=== PATIENT | female | born 1945 | race Caucasian/White ===

== ENCOUNTER 2016-11-02 02:11 | Observation (INO) | payer MEDICARE ==
[2016-11-02 02:48] VITALS: BMI 23.3
[2016-11-02] MEDS ORDERED: Morphine 2 mg/ml ISec IVP STA (03:03)
[2016-11-02] MEDS: Sodium Chloride 0.9% 1,000 ML IV SCH ×3 (03:33→22:08)
--- NOTE | 2016-11-02 03:51 | ED PDOC ---
Arrival/HPI - General Chief Complaint: Abdominal Pain Time Seen by Provider: 11/02/16 02:50 Historian: Patient - History of Present Illness Narrative History of Present Illness (Text): 11/02/16 03:43 70 year old female whose past medical history includes diverticulosis, hypertension, H. pylori, and appendectomy presents to the Emergency department complaining of epigastric pain. Patient describes the pain as "achey". She also notes chills and multiple episodes of vomiting and diarrhea. Patient states she drank pedialyte but vomited it up. She denies fever or any urinary complaints. PMD: Dr. Oviedo GI: Dr. Gomez Time/Duration: < week Symptom Onset: Gradual Symptom Course: Unchanged Activities at Onset: Rest Past Medical History - Provider Review Nursing Documentation Reviewed: Yes - Tetanus Immunization Tetanus Immunization: Unknown - Cardiac Hx Cardiac Disorders: Yes Hx Angina: No Hx Atrial Fibrillation: No Hx Cardiac Arrhythmia: No Hx Circulatory Problems: No Hx Congestive Heart Failure: No Hx AL: No Hx Heart Murmur: No Hx Heart Transplant: No Hx Hypertension: Yes Hx Hypotension: No Hx Internal Defibrillator: No Hx Mitral Valve Prolapse: No Hx Pacemaker: No Hx Peripheral Edema: No Hx Peripheral Vascular Disease: No - Pulmonary Hx Respiratory Disorders: No - Neurological Hx Neurological Disorder: No - HEENT Hx HEENT Disorder: No - Renal Hx Renal Disorder: No - Endocrine/Metabolic Hx Endocrine Disorders: No - Hematological/Oncological Hx Blood Disorders: No - Integumentary Hx Dermatological Disorder: No - Musculoskeletal/Rheumatological Hx Musculoskeletal Disorders: No - Gastrointestinal Hx Gastrointestinal Disorders: Yes Hx Bowel Surgery: No Hx Clostridium Difficile: No Hx Colitis: Yes Hx Colostomy: No Hx Constipation: No Hx Crohn's Disease: No Hx Diarrhea: No Hx Diverticulitis: No Hx Esophageal Varices: No Hx Fatty Liver Disease: No Hx Gastritis: No Hx Gastroesophageal Reflux: No Hx Gastrointestinal Ulcer: No Hx Hemorrhoids: No Hx Ileostomy: No Hx Irritable Bowel: No Hx Liver Failure: No Hx Nausea: No Hx Pancreatitis: No HX Swallowing Problems: No Hx Vomiting: Yes - Genitourinary/Gynecological Hx Genitourinary Disorders: No - Psychiatric Hx Psychophysiologic Disorder: No Hx Substance Use: No - Surgical History Hx Appendectomy: Yes Other/Comment: CHOLYCESTECOMY - Anesthesia Hx Anesthesia: No - Suicidal Assessment Feels Threatened In Home Enviroment: No Family/Social History - Physician Review Nursing Documentation Reviewed: Yes Family/Social History: Unknown Family HX Smoking Status: Never Smoked Hx Alcohol Use: No Hx Substance Use: No Allergies/Home Meds Allergies/Adverse Reactions: Allergies No Known Allergies Allergy (Verified 09/21/14 05:54) Home Medications: Home Meds Medication Instructions Recorded Confirmed Alendronate [Fosamax] 70 mg PO MON 11/02/16 11/02/16 Fluticasone Nasal [Flonase] 1 spray INH PRN PRN 11/02/16 11/02/16 Lisinopril [Zestril] 2.5 mg PO DAILY 11/02/16 11/02/16 Montelukast [Singulair] 10 mg PO DAILY 11/02/16 11/02/16 Review of Systems - Physician Review All systems were reviewed & negative as marked: Yes - Review of Systems Constitutional: Other (+chills). absent: Fevers Respiratory: absent: SOB, Cough Cardiovascular: absent: Chest Pain Gastrointestinal: Abdominal Pain (epigastric), Vomiting Genitourinary Female: absent: Dysuria, Frequency, Hematuria Physical Exam Vital Signs Reviewed: Yes Vital Signs Temp Pulse Resp BP Pulse Ox 11/02/16 06:17 77 16 119/70 97 11/02/16 05:47 98 F 75 14 113/65 97 11/02/16 04:00 71 16 111/65 98 11/02/16 02:52 99.2 F 89 18 133/95 H 100 Temperature: Afebrile Blood Pressure: Normal Pulse: Regular Respiratory Rate: Normal Appearance: Positive for: Well-Appearing, Non-Toxic, Comfortable Pain Distress: None Mental Status: Positive for: Alert and Oriented X 3 - Systems Exam Head: Present: Atraumatic, Normocephalic Pupils: Present: PERRL Extroacular Muscles: Present: EOMI Conjunctiva: Present: Normal Mouth: Present: Dry Neck: Present: Normal Range of Motion Respiratory/Chest: Present: Clear to Auscultation, Good Air Exchange. No: Respiratory Distress, Accessory Muscle Use, Wheezes, Rales Cardiovascular: Present: Regular Rate and Rhythm, Normal S1, S2. No: Murmurs, Rub, Gallop Abdomen: Present: Tenderness (epigastic), Normal Bowel Sounds. No: Distention, Peritoneal Signs, Rebound, Guarding, McBurney's Point Tender, Rovsing's Sign Present Back: Present: Normal Inspection Upper Extremity: Present: Normal Inspection. No: Cyanosis, Edema Lower Extremity: Present: Normal Inspection. No: Edema Neurological: Present: GCS=15, CN II-XII Intact, Speech Normal Skin: Present: Warm, Dry, Normal Color. No: Rashes Psychiatric: Present: Alert, Oriented x 3, Normal Insight, Normal Concentration Medical Decision Making ED Course and Treatment: 11/02/16 03:54 Impression: 70 year old female complaining of epigastric pain. Physical exam revealed epigastric tenderness and dry mucous membranes. Differential Diagnosis included but are not limited to: gastroenteritis, vs pancreatitis vs diverticulitis Plan: --CT Abdomen/Pelvis CT --EKG --blood culture --Urinalysis --Labs --Morphine, Pepcid, IVF -- Reassess and disposition Prior Visits: Notes and results from previous visits were reviewed. Progress Notes: 11/02/16 05:[address] scan and reported she was experiencing a flushing sensation in her body almost like lightheadedness. Patient states she was feeling uncomfortable. Repeat EKG showed NSR; 84 BPM. She denies chest pain or abdominal pain. Zofran 4mg IV was ordered. After reevaluation, patient still this feeling of lightheadedness. When she opens her eyes she feels nauseous and like she's going to faint. CT Head ordered. Reglan IV ordered. 11/02/16 07:07 Patient feels a little better after Reglan but still doesn't feel right. CT Head reviewed and negative. I discussed case with Dr. Meeks who is covering for Dr. Doan. We agreed to place her on observation med/surg for intractable abdominal pain and gastroenteritis. - Lab Interpretations Lab Results: 11/02/16 03:30 11/02/16 03:30 Lab Results 11/02/16 03:30: WBC 7.3, RBC 4.17, Hgb 13.5, Hct 39.9, MCV 95.7, MCH 32.4, MCHC 33.8, RDW 12.5, Plt Count 232, MPV 10.3, Neutrophils % (Manual) 89 H, Band Neutrophils % 4 H, Lymphocytes % (Manual) 6 L, Monocytes % (Manual) 1, Platelet Evaluation Normal, Sodium 137, Potassium 3.9, Chloride 101, Carbon Dioxide 25, Anion Gap 15, BUN 26 H, Creatinine 0.9, Est GFR ( Amer) > 60, Est GFR ( Non-Af Amer) > 60, Random Glucose 130 H, Calcium 10.2, Total Bilirubin 0.8, AST 47 H, ALT 29, Alkaline Phosphatase 69, Lactate Dehydrogenase 601, Total Creatine Kinase 83, Troponin I 0.02 D, Total Protein 8.4 H, Albumin 4.4, Globulin 4.0, Albumin/Globulin Ratio 1.1, Lipase 101 I have reviewed the lab results: Yes Interpretation: Abnormal lab values (elevated BUN, elevated glucose) - RAD Interpretation Radiology Orders: 11/02/16 06:39 HEAD W/O CONTRAST [CT] Stat CT ABD PELV with IV contrast IMPRESSION: Marked intra-and extrahepatic biliary ductal dilatation for which laboratory correlation is recommended, noting that the patient is status post cholecystectomy. Increased fluid content in normal caliber bowel, in keeping with a likely diarrheal illness. Numerous diverticuli with no evidence of diverticulitis. Intraluminal findings as above, noting that this could represent ingested material, please correlate with previous endoscopic findings regarding possibility that these could represent enhancing lesions associated with the wall. Suspicious right adrenal lesion as above. Thank you for allowing us to participate in the care of your patient. Dictated and Authenticated by: Lynsey Gutierrez MD 11/02/2016 6:02 AM Eastern Time ([place] & [place]) [employer]: Radiologist - EKG Interpretation EKG Interpretation (Text): 11/02/16 03:58 EKG: Ordered, reviewed, and independently interpreted the EKG. Rate : 82 BPM Rhythm : NSR Interpretation : No ST-segment elevations or depressions, no T-wave inversions, normal intervals. 11/02/16 05:42 EKG: Ordered, reviewed, and independently interpreted the EKG. Rate : 84 BPM Rhythm : NSR Interpretation : No ST-segment elevations or depressions, no T-wave inversions, normal intervals. Interpreted by ED Physician: Yes Type: 12 lead EKG - Medication Orders Current Medication Orders: Sodium Chloride (Sodium Chloride 0.9%) 1,000 mls @ 100 mls/hr IV .Q10H EMERALD Last Admin: 11/02/16 03:33 Dose: 100 MLS/HR eMAR Start Stop Document 11/02/16 03:33 FJA (Rec: 11/02/16 03:35 FJA [id number]) Intravenous Solution Start Date 11/02/16 Start Time 03:34 End Date 11/02/16 End time 13:34 Total Infusion Time 600 Discontinued Medications Famotidine (Pepcid) 20 mg IVP STAT STA Stop: 11/02/16 03:02 Last Admin: 11/02/16 03:35 Dose: 20 MG IVP Administration Document 11/02/16 03:35 FJA (Rec: 11/02/16 03:35 FJA [id number]) Charges for Administration # of IVP Administrations 1 Iohexol (Omnipaque 350 150 Ml) Confirm Administered Dose 150 ml .ROUTE .STK-MED ONE Stop: 11/02/16 04:34 Iohexol (Omnipaque 240 (50 Ml)) Confirm Administered Dose 50 ml .ROUTE .STK-MED ONE Stop: 11/02/16 04:34 Iohexol (Omnipaque 350 100 Ml) Confirm Administered Dose 350 mg .ROUTE .STK-MED ONE Stop: 11/02/16 04:34 Metoclopramide HCl (Reglan) 10 mg IVP STAT STA Stop: 11/02/16 06:13 Last Admin: 11/02/16 06:26 Dose: 10 MG IVP Administration Document 11/02/16 06:26 LAC (Rec: 11/02/16 06:26 LAC [id number]) Charges for Administration # of IVP Administrations 1 Morphine Sulfate (Morphine) 2 mg IVP STAT STA Stop: 11/02/16 03:04 Last Admin: 11/02/16 03:35 Dose: 2 MG MAR Pain Assessment Document 11/02/16 03:35 FJ (Rec: 11/02/16 03:35 FJ [id number]) Pain Reassessment Is this a pain reassessment? No Presence of Pain Presence of Pain Yes Pain Scale Used Pain Scale Used Numeric Location Pain Location Body Site Abdomen Description Description Constant Intensity of Pain at present 8 Acceptable Level of Pain 0 Variations/Patterns constant IVP Administration Document 11/02/16 03:35 FJA (Rec: 11/02/16 03:35 FJ [id number]) Charges for Administration # of IVP Administrations 1 Morphine Sulfate (Morphine) 4 mg IVP STAT STA Stop: 11/02/16 04:32 Last Admin: 11/02/16 04:38 Dose: 4 MG MAR Pain Assessment Document 11/02/16 04:38 FJA (Rec: 11/02/16 04:39 [place] [id number]) Pain Reassessment Is this a pain reassessment? Yes Sleep Is patient sleeping during reassessment? No Presence of Pain Presence of Pain Yes Pain Scale Used Pain Scale Used Numeric Location Pain Location Body Site Abdomen Description Description Constant Intensity of Pain at present 10 Acceptable Level of Pain 0 Pain Behavior Guarding Grasping Site Restlessness Aggravating Factors Changing Position Alleviating Factors/Management Medication Techniques IVP Administration Document 11/02/16 04:38 FJA (Rec: 11/02/16 04:39 [place] [id number]) Charges for Administration # of IVP Administrations 1 Ondansetron HCl (Zofran Inj) 4 mg IVP STAT STA Stop: 11/02/16 04:37 Last Admin: 11/02/16 04:39 Dose: 4 MG IVP Administration Document 11/02/16 04:39 FJA (Rec: 11/02/16 04:40 [place] [id number]) Charges for Administration # of IVP Administrations 1 Ondansetron HCl (Zofran Inj) Confirm Administered Dose 4 mg .ROUTE .STK-MED ONE Stop: 11/02/16 05:37 Last Admin: 11/02/16 05:36 Dose: 4 MG - Scribe Statement The provider has reviewed the documentation as recorded by the Sha Lynn Provider Scribe Attestation: All medical record entries made by the Sha were at my direction and personally dictated by me. I have reviewed the chart and agree that the record accurately reflects my personal performance of the history, physical exam, medical decision making, and the department course for this patient. I have also personally directed, reviewed, and agree with the discharge instructions and disposition. Disposition/Present on Arrival - Present on Arrival Any Indicators Present on Arrival: No History of DVT/PE: No History of Uncontrolled Diabetes: No Urinary Catheter: No History of Decub. Ulcer: No History Surgical Site Infection Following: None - Disposition Have Diagnosis and Disposition been Completed?: Yes Diagnosis: Abdominal pain, Gastroenteritis Disposition: HOSPITALIZED Disposition Time: 07:08 Patient Plan: Observation Condition: FAIR
[2016-11-02 03:52] LABS: ALB/GLOB RATIO 1.1 (1.1-1.8); ALKALINE PHOSPHATASE 69 U/L (38-133); ALT/SGPT 29 U/L (7-56); AST/SGOT 47 U/L (15-39); BILIRUBIN,TOTAL 0.8 mg/dL (0.2-1.3); BLOOD UREA NITROGEN 26 mg/dL (7-21); CALCIUM 10.2 mg/dL (8.4-10.5); CARBON DIOXIDE 25 mmol/L (21-33); CHLORIDE 101 mmol/L (98-107); GFR AFRICAN-AMERICAN > 60; GLUCOSE,RANDOM 130 mg/dL (70-110); LIPASE 101 U/L (23-300); POTASSIUM 3.9 mmol/L (3.6-5.0); SODIUM 137 mmol/L (132-148); TOTAL PROTEIN 8.4 g/dL (5.8-8.3)
[2016-11-02 04:02] LABS: HEMATOCRIT 39.9 % (36.0-48.0); MEAN CELL VOLUME 95.7 fL (80.0-105.0); WHITE BLOOD COUNT 7.3 10^3/ul (4.5-11.0)
[2016-11-02 04:03] LABS: ADD MANUAL DIFF? YES; MEAN CORPUSCULAR HEMOGLOBIN 32.4 pg (25.0-35.0); MEAN CORPUSCULAR HGB CONC 33.8 g/dl (31.0-37.0); MEAN PLATELET VOLUME 10.3 fl (7.0-11.0); PLATELET COUNT 232 10^3/uL (120.0-450.0); RED CELL DISTRIBUTION WIDTH 12.5 % (11.5-14.5); TROPONIN I 0.02 ng/mL
[2016-11-02] MEDS ORDERED: Morphine 4 mg/ml ISec IVP STA ×2 (04:31→05:30)
[2016-11-02] MEDS ORDERED: Iohexol 240 (50 ml) ONE (04:33)
[2016-11-02] MEDS ORDERED: Iohexol 350 MG/100 ML VIAL ONE (04:33)
[2016-11-02 05:12] LABS: BAND 4 % (0-2); NEUTROPHIL 89 % (50.0-70.0); PLATELET ESTIMATE NORMAL (NORMAL)
--- NOTE | 2016-11-02 08:31 | CT ---
PROCEDURE: CT HEAD WITHOUT CONTRAST. HISTORY: r/o cva COMPARISON: None available. TECHNIQUE: Axial computed tomography images were obtained through the head/brain without intravenous contrast. Radiation dose: Total exam DLP = 790.50 mGy-cm. FINDINGS: HEMORRHAGE: No intracranial hemorrhage. BRAIN: Mild diffuse atrophy with prominence of the ventricles and sulci noted. No mass effect or edema. Mild scattered white matter hypodensities, which are nonspecific, but often seen with chronic microvascular ischemic disease. Please note that MRI with diffusion imaging is more sensitive in the detection of acute ischemic event. VENTRICLES: No hydrocephalus. CALVARIUM: Unremarkable. PARANASAL SINUSES: Unremarkable as visualized. No significant inflammatory changes. MASTOID AIR CELLS: Unremarkable as visualized. No inflammatory changes. OTHER FINDINGS: None. IMPRESSION: No acute findings. Preliminary impression was provided by virtual radiologic.
--- NOTE | 2016-11-02 10:17 | CARD ---
APPROVED REPORT EKG Measurement Heart [id number] [id number] <Conclusion> Normal sinus rhythm Normal ECG
--- NOTE | 2016-11-02 10:20 | CARD ---
APPROVED REPORT EKG Measurement Heart [id number] [place] [id number] [id number] <Conclusion> Normal sinus rhythm Normal ECG No change
[2016-11-02] MEDS ORDERED: Morphine 2 mg/ml ISec IVP PRN (12:12)
--- NOTE | 2016-11-02 13:07 | HP ---
HISTORY OF PRESENT ILLNESS: The patient is a 70-year-old female who presents to [facility] er secondary to multiple episodes of nausea, vomiting as well as severe abdominal pain. She was sofia rose in the ER with multiple rounds of morphine as well as Zofran, but despite, pain still persists, s o patient is being admitted for further evaluation. PAST MEDICAL HISTORY: Includes H. pylori, diverticulosis, hypertension. MEDICAL ALLERGIES: No known allergies. MEDICATIONS: See MAR. SOCIAL HISTORY: No smoking, no drinking, no drug use. FAMILY MEDICAL HISTORY: Positive for hypertension. REVIEW OF SYSTEMS: HEENT: Noncontributory. CARDIOVASCULAR: Positive for some palpitations. LUNGS: Noncontributory. ABDOMEN: Positive for nausea, vomiting as well as decreased p.o. intake. EXTREMITIES: Unremarkable. PHYSICAL EXAMINATION: VITAL SIGNS: Blood pressure currently is 123/77, pulse rate of 78, temperature is 97.9, O2 saturatio n is 98 on room air. HEENT: Normocephalic, atraumatic. [place] conjunctivae, nonicteric sclerae. NECK: No JVD, no thyromegaly. CARDIOVASCULAR: Regular rate and rhythm. S1, S2 appreciated. No S3 noted. LUNGS: Bilateral air entry is positive. No wheezes or rhonchi. ABDOMEN: There is no tenderness on deep palpation; however, bowel sounds are sluggish. EXTREMITIES: Peripheral pulses +2 with no pitting edema. LABORATORY DATA: WBCs 7.3, hemoglobin 13.5, hematocrit of 39.9, platelets of 232. Chemistry and LFT s within normal limits. Amylase and lipase also within normal limits. She did have a CT of the head due to some dizziness she was having which was essentially negative. ASSESSMENT: 1. Abdominal pain with nausea and vomiting. 2. Diverticulosis. 3. Dehydration. 4. Hypertension. PLAN: At this time, we will give IV fluids at this point. We will get a GI consultation and we will follow very closely. If the patient is tolerating diet, we will advance it and discharge likely in the morning. Evan Meeks MD cc: [id number] TT: 11/02/2016 13:07:03 tn
[2016-11-02] MEDS ORDERED: Pneumococcal 23-Valent Vaccine IM ONE (13:56)
[2016-11-02] MEDS ORDERED: Influenza Vaccine 45 MCG/0.5 ml IM ONE (13:56)
[2016-11-02 20:10] LABS: PH,URINE 5.5 (4.7-8.0); URINE BILIRUBIN NEGATIVE (NEGATIVE); URINE BLOOD LARGE (NEGATIVE); URINE GLUCOSE (UA) NEGATIVE (NEGATIVE); URINE KETONE NEGATIVE (NEGATIVE); URINE LEUKOCYTE ESTERASE NEGATIVE Leu/uL (NEGATIVE); URINE PROTEIN NEGATIVE mg/dL (<30 mg/dL); URINE UROBILINOGEN 0.2 E.U./dL (<1 E.U./dL)
[2016-11-02 20:13] LABS: URINE APPEARANCE SL CLOUDY (CLEAR); URINE COLOR YELLOW (YELLOW)
[2016-11-02 21:13] LABS: URINE BACTERIA FEW (NEG)
--- NOTE | 2016-11-02 22:16 | CP.PCM.PN ---
Subjective - Date & Time of Evaluation Date of Evaluation: 11/02/16 Time of Evaluation: 22:07 - Subjective Subjective: called by nurse pt is c/o having diarrhea watery multiple times pt is admitted for abdominal pain nausea and vomiting earlier today , pt states she ate chichen from freezer at night and 6 pm and at 1 am she started having nausea and vomiting and abdominal pain .other family members also had similar symptoms . no fever chills . pt has hx of diverticulitis. Objective - Vital Signs/Intake and Output Vital Signs (last 24 hours): Temp Pulse Resp BP Pulse Ox 98 F 75 18 107/65 100 11/02/16 16:00 11/02/16 16:00 11/02/16 16:00 11/02/16 16:00 11/02/16 16:00 Intake and Output: 11/02/16 11/03/16 18:59 06:59 Intake Total 820 Balance 820 - Medications Medications: Current Medications Sodium Chloride (Sodium Chloride 0.9%) 1,000 mls @ 100 mls/hr IV .Q10H EMERALD Last Admin: 11/02/16 17:17 Dose: 100 mls/hr Morphine Sulfate (Morphine) 2 mg IVP Q4H PRN PRN Reason: Pain, moderate (4-7) Ondansetron HCl (Zofran Inj) 4 mg IVP Q6H PRN PRN Reason: Nausea/Vomiting - Constitutional Appears: No Acute Distress - Head Exam Head Exam: NORMOCEPHALIC - Eye Exam Eye Exam: Normal appearance Pupil Exam: PERRL - ENT Exam ENT Exam: Mucous Membranes Moist - Neck Exam Neck Exam: Full ROM - Respiratory Exam Respiratory Exam: Clear to Ausculation Bilateral, NORMAL BREATHING PATTERN - Cardiovascular Exam Cardiovascular Exam: REGULAR RHYTHM, RRR, +S1, +S2 - GI/Abdominal Exam GI & Abdominal Exam: Soft, Normal Bowel Sounds Additional comments: pt has mild tenderness in the rt flank region. - Extremities Exam Extremities Exam: Full ROM - Neurological Exam Neurological Exam: Alert, Awake, Oriented x3 - Skin Skin Exam: Dry, Warm Assessment and Plan - Assessment and Plan (Free Text) Assessment: acute diarrhea / FOOD POISONING. Plan: STOOL FOR c-diff ,fecal leukocytes ,ocult blood .imodium 4mg x1. continue fluids .
[2016-11-03 07:07] LABS: ADD MANUAL DIFF? NO
[2016-11-03 07:18] LABS: BASO # 0.01 K/mm3 (0.0-2.0); BASO % 0.1 % (0.0-3.0); GRAN # 6.28 (1.4-6.5); GRAN % 88.5 % (50.0-68.0); HEMATOCRIT 34.5 % (36.0-48.0); LYMPH # 0.4 (1.2-3.4); LYMPH % 5.2 % (22.0-35.0); MEAN CELL VOLUME 96.6 fL (80.0-105.0); MEAN CORPUSCULAR HEMOGLOBIN 32.5 pg (25.0-35.0); MEAN CORPUSCULAR HGB CONC 33.6 g/dl (31.0-37.0); MEAN PLATELET VOLUME 9.7 fl (7.0-11.0); MONO # 0.4 (0.1-0.6); MONO % 6.2 % (1.0-6.0); PLATELET COUNT 182 10^3/uL (120.0-450.0); RED CELL DISTRIBUTION WIDTH 13.3 % (11.5-14.5); WHITE BLOOD COUNT 7.1 10^3/ul (4.5-11.0)
[2016-11-03 07:36] LABS: ALB/GLOB RATIO 1.1 (1.1-1.8); ALKALINE PHOSPHATASE 50 U/L (38-133); ALT/SGPT 34 U/L (7-56); AST/SGOT 41 U/L (15-39); BILIRUBIN,TOTAL 0.5 mg/dL (0.2-1.3); BLOOD UREA NITROGEN 17 mg/dL (7-21); CALCIUM 8.2 mg/dL (8.4-10.5); CARBON DIOXIDE 27 mmol/L (21-33); CHLORIDE 106 mmol/L (95-110); GFR AFRICAN-AMERICAN > 60; GLUCOSE,RANDOM 93 mg/dL (70-110); POTASSIUM 3.6 mmol/L (3.6-5.0); SODIUM 139 mmol/L (132-148); TOTAL PROTEIN 6.5 g/dL (5.8-8.3)
[2016-11-03 08:00] VITALS: RESP 20
[2016-11-03] MEDS: Sodium Chloride 0.9% 1,000 ML IV SCH ×2 (10:06→19:13)
--- NOTE | 2016-11-03 13:32 | PN ---
DATE: 11/03/2016 The patient seen and examined at bedside. At this point, the patient states the nausea and vomiting has subsided; however, continues to have severe abdominal pain despite pain medication. Also states that she has been having multiple episodes of diarrhea since yesterday, decreased p.o. intake, but no chest pain, no shortness of breath, no nausea, no vomiting. PHYSICAL EXAMINATION: VITAL SIGNS: Blood pressure is currently 142/72, pulse rate 92, temperature is 99.5, O2 saturation i s 99. HEENT: Normocephalic, atraumatic. [place] conjunctivae, nonicteric sclerae. NECK: No JVD, no thyromegaly. CARDIOVASCULAR: Regular rate and rhythm. S1, S2 appreciated. No S3 noted. LUNGS: Bilateral air entry is positive. No wheezes or rhonchi. ABDOMEN: Positive for tenderness diffusely with positive bowel sounds. EXTREMITIES: Peripheral pulses +2 with no pitting edema. LABORATORY DATA: WBCs of 7.1, hemoglobin 11.6, hematocrit of 34.5, platelets of 182. Chemistry and LFTs within normal limits. Stool for C. diff is negative for antigen and toxin. Blood cultures are also negative. ASSESSMENT: 1. Diarrhea. 2. Abdominal pain. 3. Diverticulitis. 4. Hypertension. PLAN: At this time, we will continue to follow with the GI consult. Noted that IV fluids have been continued at this point. Zofran was started also, as well as morphine for pain. Will follow very cl osely. Evan Meeks MD cc: [id number] TT: 11/03/2016 13:31:53 Confirmation # [id number] Dictation # [id number]
[2016-11-03] MEDS: metroNIDAZOLE IV 500 mg/100 ml 100 ML IVPB SCH ×2 (15:22→21:47)
[2016-11-04] MEDS: metroNIDAZOLE IV 500 mg/100 ml 100 ML IVPB SCH (05:26)
[2016-11-04 06:51] LABS: ADD MANUAL DIFF? NO
[2016-11-04 07:09] LABS: BASO # 0.01 K/mm3 (0.0-2.0); BASO % 0.2 % (0.0-3.0); EOS % 0.2 % (1.5-5.0); GRAN # 2.51 (1.4-6.5); GRAN % 59.7 % (50.0-68.0); HEMATOCRIT 32.4 % (36.0-48.0); LYMPH % 23.3 % (22.0-35.0); MEAN CELL VOLUME 95.6 fL (80.0-105.0); MEAN CORPUSCULAR HGB CONC 34.6 g/dl (31.0-37.0); MEAN PLATELET VOLUME 10.4 fl (7.0-11.0); MONO # 0.7 (0.1-0.6); MONO % 16.6 % (1.0-6.0); PLATELET COUNT 179 10^3/uL (120.0-450.0); RED CELL DISTRIBUTION WIDTH 12.9 % (11.5-14.5); WHITE BLOOD COUNT 4.2 10^3/ul (4.5-11.0)
[2016-11-04 07:11] LABS: ALKALINE PHOSPHATASE 63 U/L (38-133); ALT/SGPT 392 U/L (7-56); AST/SGOT 356 U/L (15-39); BILIRUBIN,TOTAL 0.9 mg/dL (0.2-1.3); BLOOD UREA NITROGEN 10 mg/dL (7-21); CALCIUM 7.7 mg/dL (8.4-10.5); CARBON DIOXIDE 26 mmol/L (21-33); CHLORIDE 106 mmol/L (95-110); GFR AFRICAN-AMERICAN > 60; GLUCOSE,RANDOM 86 mg/dL (70-110); POTASSIUM 3.3 mmol/L (3.6-5.0); SODIUM 139 mmol/L (132-148)
[2016-11-04 07:33] VITALS: BP 126/60; PULSE 66; TEMP 98.7; O2SAT 98
[2016-11-04] MEDS: Potassium Chloride 10 mEq 100 ML IVPB SCH ×2 (10:05→11:58)
--- NOTE | 2016-11-04 11:11 | CON ---
DATE: 11/03/2016 This patient was seen and evaluated earlier, discussed with Dr. Meeks. This 70-year-old patient admitted with acute onset of abdominal pain, diarrhea, and vomiting. The patient had cramping abdominal discomfort. She said that she ate a chicken piece which she had it in the refrigerator and she developed the symptoms 5hrs after she ate the chicken She was c/o cramping abdominal discomfort and diarrhoea. Now, she feels overall better, but no abdominal pain. She did not receive any pain medication today , but still complains of loose bowel movements. No fever. The patient is on IV fluids and also on IV flagyle._. PAST MEDICAL HISTORY: See as above. SOCIAL HISTORY: Denies smoking or alcohol. FAMILY HISTORY: Positive for hypertension. REVIEW OF SYSTEMS: Positive as above. All other systems reviewed and unremarkable. PHYSICAL EXAMINATION: GENERAL: The patient is lying on the bed, not in acute distress, afebrile, BP 120/77. The O2 saturation is 98% on room air. HEENT: Atraumatic, anicteric. NECK: Supple. HEART: S1, S2 heard. LUNGS: Bilateral air entry present. ABDOMEN: Soft. There was no tenderness present. . EXTREMITIES: No edema. No cyanosis. NEUROLOGIC: Alert, oriented. LABORATORY DATA: WBC 7.1, hemoglobin 11.6, hematocrit 34.5, platelets 182. Chemistry: AST 41. The rest of the labs are okay. IMPRESSION: This 70-year-old patient was admitted with acute onset of abdominal pain, diarrhea, and vomiting. The likely cause to be considered is gastroenteritis. Rule out infectious colitis. Would recommend followup of the stool for stool cultures. Clostridium difficile sent earlier was negative. Will continue IV fluids, liquid diet. We will slowly advance the diet. Since the patient no tenderness, no pain no fever, no leukocytosis, at the present time, we will defer antibiotics at the moment. The patient can be symptomatically managed with IV fluid hydration and control of the diarrhea. We will continue to closely follow up her care and suggest further management based on the clinical course. Kaya Thakkar MD cc: [id number] TT: 11/04/2016 09:52:54 Confirmation # [id number] Dictation # [id number]
--- NOTE | 2016-11-04 14:49 | DS ---
I saw her resting in bed this morning. She slept fairly well. No nausea, vomiting, and less abdomin al pain. I increased her diet to full liquids for this morning. I increased her diet to regular for lunch. If she tolerates them, I am going to try and discharge her this afternoon. PHYSICAL EXAMINATION: VITAL SIGNS: Temp 98.7, 66 pulse, 126/60 blood pressure, 20 respiratory rate, 98% O2 sat on room air . HEENT: Head is atraumatic, normocephalic. HEART: Regular rate. LUNGS: Clear to auscultation. ABDOMEN: Soft, positive bowel sounds, mildly distended, but no guarding, no rebound. EXTREMITIES: Have no edema. She is currently on Flagyl IV, morphine, potassium replacement, IV fluids and Zofran. She is being seen by GI. She had a CAT scan of the head, which was okay. She has intractable nausea , vomiting, and abdominal pain, which is now slowly resolving. I am hoping that if she does well tod ay for breakfast and lunch, then we can possibly discharge her this afternoon. She is here for intractable abdominal pain, viral gastroenteritis. Anibal Doan DO cc: [id number] TT: 11/04/2016 14:48:39 en
--- NOTE | 2016-11-05 06:52 | CT ---
PROCEDURE: CT Abdomen and Pelvis with contrast HISTORY: abd pain r/o diverticulitis COMPARISON: CT abdomen and pelvis without contrast performed 09/21/14 TECHNIQUE: Contrast dose: Omnipaque 350 Radiation dose: Total exam DLP = 478.46 mGy-cm. FINDINGS: LOWER THORAX: No visible consolidation, pleural effusion, or pneumothorax. Small hiatal hernia with evidence of gastroesophageal reflux. LIVER: Unremarkable. GALLBLADDER AND BILE DUCTS: Cholecystectomy. Mild intrahepatic and extra hepatic biliary ductal dilatation. PANCREAS: Unremarkable. SPLEEN: Unremarkable. ADRENALS: Rim enhancing nodule within the right at adnexa measuring approximately 12 mm, indeterminate. Left adrenal gland hypertrophy. KIDNEYS AND URETERS: The kidneys enhance symmetrically. No evidence of hydronephrosis or obstructing calculus. VASCULATURE: No aortic aneurysm. BOWEL: The stomach is nondistended. Lack of oral contrast limits evaluation for bowel pathology. Bowel loops contained fluid compatible with diarrheal illness. Diverticulosis most severe within the sigmoid colon. Questionable regions of bowel narrowing as well as enhancing foci versus intraluminal debris. APPENDIX: No secondary signs of acute appendicitis. PERITONEUM: No significant free fluid. No definite free air. LYMPH NODES: No bulky lymphadenopathy identified. BLADDER: Unremarkable. REPRODUCTIVE: The uterus is present. BONES: Degenerative changes. OTHER FINDINGS: None. IMPRESSION: Indeterminate right adrenal nodule as above. Dedicated cross-sectional imaging recommended for further characterization. Bowel loops contained fluid compatible with diarrheal illness. Diverticulosis without CT evidence of acute diverticulitis . Questionable regions of bowel narrowing as well as enhancing foci within the bowel lumen versus intraluminal debris. Recommend correlation with colonoscopy when clinically feasible. Cholecystectomy. Mild intrahepatic and extra hepatic biliary ductal dilatation. Preliminary impression was provided by virtual radiologic.
== END 2016-11-04 15:05 | disposition home or self-care (01) ==
LOC: ED 02:11 → ERH 07:06 → 5RSO 09:00 → OBSVTOIN 11-03 13:06 → INTOOBSV 11-03 13:06 → 5RSO 11-03 20:24
PROVIDERS: ADMIT Family Medicine; ATTEND Family Medicine
DX: A08.4 Viral intestinal infection, unspecified (principal); I10 Essential (primary) hypertension; E86.0 Dehydration; K57.90 Diverticulosis of intestine, part unspecified, without perforation or abscess without bleeding
CPT/HCPCS: 36415; 70450; 80053; 81001; 82550; 83615; 83690; 84484; 85025; 87040; 87045; 87324; 89055; 93005; 96361; 96374; 96375; 96376; 99284; G0328; G0378; J2270; J2405; J2765; J3480; J7040; Q9966; Q9967